=== PATIENT | female | born 1990 | race Two or more races ===

== ENCOUNTER 2018-02-11 09:32 | Emergency (ER) | payer SELFPAY ==
[2018-02-11 09:48] VITALS: BP 127/71; PULSE 80; TEMP 98.6; BMI 28.1
--- NOTE | 2018-02-11 10:08 | PDOC ---
History of Present Illness - General Chief Complaint: Abscess Boil Stated Complaint: CYST Time Seen by Provider: 02/11/18 09:50 History Source: Patient Exam Limitations: No Limitations - History of Present Illness Initial Comments: CHIEF COMPLAINT: 27 y/o afebrile female with PMH HS c/o left inguinal abscess x 3 days. HISTORY OF PRESENT ILLNESS: Patient denies fever. SHe has been applying hot compresses but it has not opened. Vital signs on arrival are within normal limits. REVIEW OF SYSTEMS: GENERAL/CONSTITUTIONAL: No fever MUSCULOSKELETAL: No joint or muscle swelling or pain. No neck or back pain. SKIN: +boil left inguinal area NEUROLOGIC: No headache, vertigo, loss of consciousness, or loss of sensation. PHYSICAL EXAM: GENERAL: The patient is awake, alert, and fully oriented, in no acute distress NEUROLOGICAL: Normal speech, normal gait. CN II-XII grossly intact. SKIN: 4cm x 2cm erythematous abscess to left inguinal region with raised, fluctuant center. No streaking. Past History - Past Medical History Allergies/Adverse Reactions: Allergies Allergy/AdvReac Type Severity Reaction Status Date / Time No Known Allergies Allergy Verified 02/11/18 09:45 Home Medications: Ambulatory Orders Cephalexin [Keflex] 500 mg PO TID #21 capsule 02/11/18 Sulfamethoxazole/Trimethoprim [Bactrim Ds -] 1 tab PO BID #14 tablet 02/11/18 COPD: No CHF: No - Suicide/Smoking/Psychosocial Hx Smoking History: Never smoked Have you smoked in the past 12 months: No Information on smoking cessation initiated: No Hx Alcohol Use: No Drug/Substance Use Hx: No Substance Use Type: None *Physical Exam - Vital Signs Last Vital Signs Temp Pulse Resp BP Pulse Ox 98.6 F 80 18 127/71 100 02/11/18 09:45 02/11/18 09:45 02/11/18 09:45 02/11/18 09:45 02/11/18 09:45 Procedures - Incision and Drainage I&D Site: Left: Groin Betadine cleansed: Yes Anesthesia: 1% Lidocaine Volume(ml): 5 Blade Size: 11 Attempts: 1 Iodinated Packin/2 in Dressing: Yes Medical Decision Making - Medical Decision Making A/P: 27 y/o female with inguinal abscess that I&Ded. Applied packing. Will d/ c to home with rx for bactrim and keflex. Instructed her to return in 2 days to have packing removed. Patient has an IUD and assures me she is not The patient and his mom verbalize understanding of all instructions, have no further questions and are awaiting discharge. *DC/Admit/Observation/Transfer Diagnosis at time of Disposition: Inguinal abscess - Discharge Dispostion Disposition: HOME Condition at time of disposition: Good - Prescriptions Prescriptions: Cephalexin [Keflex] 500 mg PO TID #21 capsule Sulfamethoxazole/Trimethoprim [Bactrim Ds -] 1 tab PO BID #14 tablet - Referrals Referrals: Kina Joyce MD [Primary Care Provider] - - Patient Instructions Printed Discharge Instructions: DI for Incision and Drainage of a Skin Abscess Additional Instructions: Discharge Instructions: -You have a skin abscess which was drained. Please keep dry for 24 hours. -Return to the ER in 2 days to have packing removed -2 prescriptions for antibiotics have been sent to your pharmacy - Post Discharge Activity
== END 2018-02-11 10:28 | disposition home or self-care (01) ==
LOC: JERFT 09:32
PROC: 0J9C0ZZ Drainage of Pelvic Region Subcutaneous Tissue and Fascia, Open Approach (ICD-10-PCS; principal; 2018-02-11)
DX: L02.214 Cutaneous abscess of groin (principal)
CPT/HCPCS: 99281-25

== ENCOUNTER 2018-02-13 18:56 | Emergency (ER) | payer SELFPAY ==
[2018-02-13 19:16] VITALS: BP 139/56; PULSE 69; TEMP 98.3; BMI 28.1
--- NOTE | 2018-02-13 20:46 | PDOC ---
History of Present Illness - General Chief Complaint: Revisit,Wound Recheck Stated Complaint: FOLLOW UP Time Seen by Provider: 02/13/18 20:40 - History of Present Illness Initial Comments: 27-year-old female returns to the emergency room for violation of an abscess that was incised and drained 2 days ago. She states she is feeling better. She states her antibiotics as prescribed. 02/13/18 20:43 Past History - Past Medical History Allergies/Adverse Reactions: Allergies Allergy/AdvReac Type Severity Reaction Status Date / Time No Known Allergies Allergy Verified 02/13/18 19:16 Home Medications: Ambulatory Orders Cephalexin [Keflex] 500 mg PO TID #21 capsule 02/11/18 Sulfamethoxazole/Trimethoprim [Bactrim Ds -] 1 tab PO BID #14 tablet 02/11/18 COPD: No CHF: No - Suicide/Smoking/Psychosocial Hx Smoking History: Never smoked Have you smoked in the past 12 months: No Information on smoking cessation initiated: No Hx Alcohol Use: No Drug/Substance Use Hx: No Substance Use Type: None Review of Systems - Review of Systems Integumentary: Yes: Lesions All Other Systems: Reviewed and Negative *Physical Exam - Vital Signs Last Vital Signs Temp Pulse Resp BP Pulse Ox 98.3 F 69 16 139/56 L 98 02/13/18 19:14 02/13/18 19:14 02/13/18 19:14 02/13/18 19:14 02/13/18 19:14 - Physical Exam Comments: Examination done with female nurse in the room. There is an indurated non- erythemic nonfluctuant area with a small subcentimeter incision where the abscess was drained on the left upper inner thigh. In close approximation to the external genitalia. There is mild purulence once the packing was removed which was expressed. A dry sterile dressing was placed. 02/13/18 20:44 Medical Decision Making - Medical Decision Making Continue antibiotics recommend follow-up in 2 days for further evaluation of wound ointment may be switched to wet-to-dry dressings 02/13/18 20:44 *DC/Admit/Observation/Transfer Diagnosis at time of Disposition: Wound check, abscess - Discharge Dispostion Disposition: HOME Condition at time of disposition: Stable Decision to Admit order: No - Referrals Referrals: Kina Joyce MD [Primary Care Provider] - - Patient Instructions Additional Instructions: Continued to take the antibiotics as directed. Continue to change the dressing twice daily dry sterile gauze. Return to the emergency room in 2 days for further evaluation and treatment options you need a wound check in 2 days. - Post Discharge Activity
== END 2018-02-13 20:47 | disposition home or self-care (01) ==
LOC: JERFT 18:56
DX: Z48.01 Encounter for change or removal of surgical wound dressing (principal)
CPT/HCPCS: 99281-25